=== PATIENT | male | born 1970 | race Asian ===

== ENCOUNTER 2016-11-08 17:57 | Emergency (ER) | payer OTHER, BC ==
[~2016-11-08] VITALS: Ht 167.6 cm; Wt 68.0 kg
[2016-11-08 19:34] VITALS: BP 105/61; TEMP 98.6
== END 2016-11-08 19:42 | disposition home or self-care (01) ==
LOC: ED 17:57
PROC: 0HQGXZZ Repair Left Hand Skin, External Approach (ICD-10-PCS; principal; 2016-11-08)
DX: S61.217A Laceration without foreign body of left little finger without damage to nail, initial encounter (principal); W45.8XXA Other foreign body or object entering through skin, initial encounter
CPT/HCPCS: 99283

== ENCOUNTER 2017-03-20 14:03 | Outpatient (CLI) | payer BC | END 2017-03-20 14:15 | disposition short-term general hospital (02) | LOC: AMB 14:03 | DX: R07.81 Pleurodynia (principal); S00.01XA Abrasion of scalp, initial encounter; S50.311A Abrasion of right elbow, initial encounter; Y04.0XXA Assault by unarmed brawl or fight, initial encounter; Y92.89 Other specified places as the place of occurrence of the external cause | CPT/HCPCS: A0425; A0429 ==

== ENCOUNTER 2017-03-20 14:15 | Emergency (ER) | payer BC ==
[~2017-03-20] VITALS: Ht 167.6 cm; Wt 65.8 kg
[2017-03-20 14:20] VITALS: TEMP 97.6
[2017-03-20 16:25] VITALS: BP 128/78
== END 2017-03-20 16:25 | disposition home or self-care (01) ==
LOC: ED 14:15
DX: S50.01XA Contusion of right elbow, initial encounter (principal); S40.021A Contusion of right upper arm, initial encounter; R07.89 Other chest pain; Y04.0XXA Assault by unarmed brawl or fight, initial encounter
CPT/HCPCS: 96374; 96375; 99284; J1885; J2270; J2405